=== PATIENT | female | born 1970 | race African-American/Black ===

== ENCOUNTER 2018-10-11 13:25 | Emergency (ER) | payer MEDICAID ==
[~2018-10-11] VITALS: Ht 175.3 cm; Wt 100.0 kg
[2018-10-11] MEDS ORDERED: HYDROCODONE/ACETAMINOPHEN 5/325MG TABLET PO ONE (14:15)
[2018-10-11] MEDS ORDERED: ONDANSETRON 4MG ODT PO ONE (14:15)
[2018-10-11 15:41] VITALS: BP 152/93
== END 2018-10-11 15:45 | disposition home or self-care (01) ==
LOC: ER 13:38
DX: S93.491A Sprain of other ligament of right ankle, initial encounter (principal); S93.601A Unspecified sprain of right foot, initial encounter; I10 Essential (primary) hypertension; X50.1XXA Overexertion from prolonged static or awkward postures, initial encounter; Y93.89 Activity, other specified; Y92.89 Other specified places as the place of occurrence of the external cause
CPT/HCPCS: 29515; 73610; 73630; 99284; Q0162